=== PATIENT | female | born 1990 | race Caucasian/White ===

== ENCOUNTER → 2021-07-31 | Outpatient (CLI) | payer OTHER | LOC: US 13:21 | DX: N63.24 Unspecified lump in the left breast, lower inner quadrant (principal) | CPT/HCPCS: 76641-LT ==

== ENCOUNTER → 2021-08-31 | Outpatient (CLI) | payer OTHER | LOC: KOH-I 14:39 | DX: R05.9 Cough, unspecified (principal); R06.02 Shortness of breath | CPT/HCPCS: 71046 ==

== ENCOUNTER 2021-12-05 13:17 | Emergency (ER) | payer OTHER ==
[2021-12-05] MEDS ORDERED: NEOMYCIN-POLYMY10 M1 EARLF (14:03)
[2021-12-05] MEDS ORDERED: BACTROBAN OINT22 GM TOP (14:35)
== END 2021-12-05 14:30 | disposition home or self-care (01) ==
LOC: ER1 13:17
DX: H60.312 Diffuse otitis externa, left ear (principal); H60.332 Swimmer's ear, left ear
CPT/HCPCS: 99282

== ENCOUNTER → 2022-01-13 | Outpatient (CLI) | payer OTHER ==
[~2022-01-13] MED LIST: BACTROBAN OINT22 GM TOP; NEOMYCIN-POLYMY10 M1 EARLF
== END ==
LOC: US 14:00
DX: N63.0 Unspecified lump in unspecified breast (principal)
CPT/HCPCS: 76642-LT